=== PATIENT | male | born 1980 | race Caucasian/White ===

== ENCOUNTER 2016-09-19 08:34 | Outpatient (CLI) ==
[2016-02-01 21:21] VITALS: BMI 20.7
[2016-09-19 09:07] LABS: CREATININE 0.94 mg/dL (0.60-1.10)
--- NOTE | 2016-09-19 11:38 | MRI ---
EXAM: Brain MRI with and without contrast. HISTORY: Chronic intractable headaches. COMPARISON: Head CT 08/09/2011. TECHNIQUE: Multiplanar, multisequence MR images were acquired of the brain before and after adminis tration of intravenous contrast. FINDINGS: The midline structures are central. The right cerebellar tonsil is slightly larger than the left and it extends to 3 mm below the foramen magnum which is within normal variation. The left tonsil extends to the foramen magnum. Both have a normal rounded configuration. The ventricles and sulci are normal in size and configuration. There are no abnormal extra-axial fluid collections. The brain parenchyma has a faint 1.5 mm focus of slightly bright B 1000, slightly dark ADC signal in the anteromedial left thalamus without T2 signal abnormality and slightly more posteriorly, there i s a 2 mm focus of faint bright B 1000, faint dark ADC signal without bright T2 signal. These foci a re not as B 1000 bright as is typical with small acute infarcts and may represent small foci of rece nt ischemia or artifact. The brain parenchyma has no abnormal T2 hyperintensities or contrast enhanc ing masses. There is a small cystic pineal gland. The corpus callosum is normal in configuration. The pituitary gland is small with mild flattening of the anterior superior gland. Enhancement is h omogeneous and the infundibulum is midline. There are no intraorbital masses. Mild rightward nasal septal deviation is present. The paranasal sinuses, middle ears and mastoids are unremarkable. 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 No intracranial mass, hemorrhage or acute cerebral infarct. 2. Small 1.5 mm and 2 mm foci of possible recent left thalamic ischemia versus artifact. Artifact is favored.
== END 2016-09-19 08:35 | disposition home or self-care (01) ==
LOC: RAD 08:34
PROVIDERS: ATTEND Nurse Practitioner
DX: R51 Headache (principal)
CPT/HCPCS: 36415; 82565